=== PATIENT | male | born 1975 | race African-American/Black ===

== ENCOUNTER 2019-03-07 07:54 | Emergency (ER) | payer OTHER, MEDICAID ==
[~2019-03-07] VITALS: Ht 175.3 cm; Wt 63.0 kg
[~2019-03-07 07:54] MED LIST: IBUPROFEN; TYLENOL ES
[2019-03-07 08:13] VITALS: BP 121/69
== END 2019-03-07 09:49 | disposition home or self-care (01) ==
LOC: ER 07:57
DX: S16.1XXA Strain of muscle, fascia and tendon at neck level, initial encounter (principal); S39.012A Strain of muscle, fascia and tendon of lower back, initial encounter; M25.561 Pain in right knee; V49.49XA Driver injured in collision with other motor vehicles in traffic accident, initial encounter; Y93.89 Activity, other specified; Y92.89 Other specified places as the place of occurrence of the external cause; Y99.8 Other external cause status; J45.909 Unspecified asthma, uncomplicated
CPT/HCPCS: 99283